=== PATIENT | female | born 1995 | race African-American/Black ===

== ENCOUNTER 2019-04-17 16:55 | Emergency (ER) | payer SELFPAY ==
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
[2019-04-17 19:08] VITALS: BP 133/78
== END 2019-04-17 18:42 | disposition home or self-care (01) ==
LOC: ED 16:55
DX: R04.0 Epistaxis (principal); R51 Headache; F41.9 Anxiety disorder, unspecified; V43.61XA Car passenger injured in collision with sport utility vehicle in traffic accident, initial encounter; Y92.410 Unspecified street and highway as the place of occurrence of the external cause
CPT/HCPCS: 99281